=== PATIENT | female | born 1970 | race Caucasian/White ===

== ENCOUNTER → 2017-08-13 | Outpatient (CLI) | payer OTHER ==
[~2017-08-13] MED LIST: AMOX500T10 PO; CETI-176 PO; DIV500 PO; FISH1CAP15 PO; FLUT16SP19; LEVO-85 PO; MELA3TAB31 PO; METH4TAB66 PO; MILK175C PO; ONDA4TAB97 PO; OXYC-865 PO; PHEN100C82 PO; SIMV-49 PO; [UNRECOGNIZED DRUG - CODE] PO
--- NOTE | 2017-08-13 14:57 | RADIOLOGY IMAGING REPORT ---
[place] [facility] [place] Marizol Pearl : 1970 MR: [id number] V: [id number] EXAM DATE: ORDERING PHYSICIAN: HAZEL SOOD TECHNOLOGIST: Location: [facility] [place] Patient: Marizol Pearl : 1970 Visit/Account:[id number] Date of Sevice: 08/13/2017 SINUSES W/O CONTRAST Provided history: chronic sinusitis Additional pertinent history: none COMPARISON STUDIES: Brain MRI 07/02/11 TECHNIQUE: Contiguous axial images were obtained through the paranasal sinuses without intravenous c ontrast administration. Coronal reformatted images were obtained from the axial source data. One of the following dose optimization techniques was utilized in the performance of this exam: Autom ated exposure control; adjustment of the mA and/or kV according to the patient's size; or use of an i terative reconstruction technique. Specific details can be referenced in the facility's radiology CT exam operational policy. FINDINGS: RIGHT Maxillary antrum / OMC: There is no antral mucosal thickening. 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 The channel does remain patent. Con tributing is lateral deviation of the middle meatus from a deviated nasal septum. Frontal / anterior ethmoid cells: negative Sphenoid / posterior ethmoid cells: negative LEFT Maxillary antrum / OMC: There is no mucosal thickening in the antrum. There is moderate mucosal thic kening along the medial roof of the antrum that contributes to moderate narrowing of the infundibulum . The channel does remain patent. Frontal / anterior ethmoid cells: negative Sphenoid / posterior ethmoid cells: negative Nasal septum / turbinates / cavity: Mild rightward deviation of the mid nasal septum impression Bilaterally. Small left lateral nasal septal spur at the level of the lower middle meatus. Both superior medial vertical struts apposed the nasal septum. Cribriform plate / fovea ethmoidalis / floor of sella: negative Basal foramina: negative TMJs: Moderate right TMJ osteoarthritis. Orbits: Previous right lens resection. Visualized intracranial contents / surrounding soft tissues: Previous right frontal craniotomy for tu mor resection. 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 No obvious new localized mass effect and no hemorrhage. IMPRESSION: 1. Findings above result in mild to moderate narrowing of the infundibulum bilaterally but both stru ctures remain patent at this time. This may predispose to intermittent development of OMC disease. 2. Rightward deviation of the nasal septum pushes the middle meatus laterally, contributing to narro wing of the right infundibulum. 3. Stable postsurgical changes right frontal lobe. 4. Moderately advanced osteoarthritis right TMJ. Report Dictated By: Juma Ly MD at 08/13/2017 2:47 PM Report E-Signed By: Juma Ly MD at 08/13/2017 2:53 PM WSN:[id number]
== END ==
LOC: CT 00:35
PROVIDERS: ATTEND Otolaryngology
DX: J34.2 Deviated nasal septum (principal); M19.91 Primary osteoarthritis, unspecified site; G93.89 Other specified disorders of brain
CPT/HCPCS: 70486

== ENCOUNTER → 2018-06-14 | Outpatient (CLI) | payer OTHER ==
[~2018-06-14] MED LIST changes: +FLAX100029 PO; +IPRA15SP7 NS; -MILK175C PO; +MILK175C2 PO; -[UNRECOGNIZED DRUG - CODE] PO
--- NOTE | 2018-06-14 15:43 | RADIOLOGY IMAGING REPORT ---
FACILITY: [facility] - [place] PATIENT NAME: Marizol Pearl : 1970 MR: [id number] V: [id number] EXAM DATE: ORDERING PHYSICIAN: MORTEZA BERKOWITZ TECHNOLOGIST: Location: [facility] - [place] Patient: Marizol Pearl : 1970 Visit/Account:[id number] Date of Sevice: 06/14/2018 EXAMINATION: MRI Brain without intravenous contrast MRI Brain with intravenous contrast HISTORY: Astrocytoma. COMPARISON: 07/02/2011. Brain MRIs from 10/22/2015 and 06/28/2013 are not available for comparison. TECHNIQUE: Multi-planar, multi-sequence brain MRI was performed before and after IV gadolinium. CONTRAST: 15 mL of IV MultiHance FINDINGS: Brain volume: Normal. Sagittal midline structures: Stable partially empty and slightly expanded sella turcica. Ventricles: Ex vacuo dilatation of the right frontal horn. Acute ischemic changes: None. Hemorrhage: Stable mild hemosiderin staining in the right frontal resection cavity. Masses / edema: Stable right frontal resection cavity and mild surrounding FLAIR hyperintensity. No abnormal enhancement. Enhancement: Negative. Pickens-white: Otherwise negative. White matter: Stable mild FLAIR hyperintensity in the anterior periventricular white matter. This m ost likely represents posttreatment changes. Vessels: Negative. Extra-axial: Negative. Calvarium / scalp: Postsurgical changes. Otherwise negative. Skull base: Negative. Visualized sinuses / orbits: Negative. Visualized upper neck: Negative. IMPRESSION: No significant change compared with 07/02/2011. Brain MRIs from 10/22/2015 and 06/28/2013 are not available for comparison. Report Dictated By: Deric Montano MD at 06/14/2018 3:32 PM Report E-Signed By: Deric Montano MD at 06/14/2018 3:39 PM WSN:[id number]
== END ==
LOC: MRI 01:18
PROVIDERS: ATTEND Family Medicine
DX: C71.9 Malignant neoplasm of brain, unspecified (principal); G40.909 Epilepsy, unspecified, not intractable, without status epilepticus; Z98.890 Other specified postprocedural states
CPT/HCPCS: 70553